=== PATIENT | male | born 1950 | race Hispanic/Latino ===

== ENCOUNTER 2022-07-27 05:35 | Emergency (ER) | payer MEDICARE ==
[~2022-07-27] VITALS: Ht 167.6 cm; Wt 86.2 kg
[2022-07-27] MEDS ORDERED: BENZONATATE100 MG PO (06:32)
[2022-07-27 06:35] VITALS: BP 165/100
== END 2022-07-27 06:35 | disposition home or self-care (01) ==
LOC: FSED 05:42
DX: R05.9 Cough, unspecified (principal); U07.1 COVID-19; I10 Essential (primary) hypertension; E78.00 Pure hypercholesterolemia, unspecified
CPT/HCPCS: 0223U; 36415; 83518; 87400; 99282